=== PATIENT | male | born 1985 | race Caucasian/White ===

== ENCOUNTER 2020-11-28 04:16 | Emergency (ER) | payer SELFPAY ==
[~2020-11-28] VITALS: Ht 180.3 cm; Wt 95.3 kg
[2020-11-28 04:16] VITALS: BP_SYST 137
--- NOTE | 2020-11-28 04:20 | NUR ---
Patient to [facility] for evaluation. Side rails up.
--- NOTE | 2020-11-28 04:25 | NUR ---
Dr. Adler chairside for pt eval
--- NOTE | 2020-11-28 04:28 | NUR ---
Pt BIB [employer] to ED seeking Medical Clearance for booking. VSS no s/s of acute distress Resting on chair No other complaints noted
[2020-11-28 04:50] VITALS: BP_SYST 138
--- NOTE | 2020-11-28 04:50 | NUR ---
Patient given written and verbal discharge instructions and verbalizes understanding. ER MD discussed with patient the results and treatment provided. Patient in stable condition. ID arm band removed. Patient educated on pain management and to follow up with PMD. Pain Scale 0/10 Opportunity for questions provided and answered.
== END 2020-11-28 04:50 ==
LOC: SED 04:16
DX: Z02.89 Encounter for other administrative examinations (principal); F10.10 Alcohol abuse, uncomplicated; Y90.9 Presence of alcohol in blood, level not specified; V47.5XXA Car driver injured in collision with fixed or stationary object in traffic accident, initial encounter; Y93.89 Activity, other specified; Y92.89 Other specified places as the place of occurrence of the external cause; Y99.8 Other external cause status
CPT/HCPCS: 99283